=== PATIENT | male | born 1980 | race Caucasian/White ===

== ENCOUNTER → 2016-07-19 | Outpatient (CLI) | payer SELFPAY ==
[2016-07-19 15:06] LABS: PLATELET MORPHOLOGY COMMENT NORMAL MORPHOLOGY (NORM)
[2016-07-19 15:07] LABS: BAND NEUTROPHILS % 1 % (0-10); BASOPHILS % (MANUAL) 0 % (0-1); EOSINOPHILS % (MANUAL) 0 % (0-8); MONOCYTES % (MANUAL) 8 % (0-12)
[2016-07-19 15:08] LABS: LYMPHOCYTES % (MANUAL) 21 % (10-50); NEUTROPHILS % (MANUAL) 70 % (50-80)
== END ==
LOC: LAB 13:47
PROVIDERS: ATTEND Psychiatry & Neurology Psychiatry
DX: F31.13 Bipolar disorder, current episode manic without psychotic features, severe (principal)
CPT/HCPCS: 85007

== ENCOUNTER → 2016-08-16 | Outpatient (CLI) | payer SELFPAY ==
[2016-08-16 14:52] LABS: BAND NEUTROPHILS % 0.2 % (0-10); BASOPHILS % (MANUAL) 0 % (0-1); EOSINOPHILS % (MANUAL) 0 % (0-8); LYMPHOCYTES % (MANUAL) 18.6 % (10-50); MONOCYTES % (MANUAL) 5.9 % (0-12); NEUTROPHILS % (MANUAL) 75.3 % (50-80); PLATELET MORPHOLOGY COMMENT NORMAL MORPHOLOGY (NORM)
== END ==
LOC: LAB 14:20
PROVIDERS: ATTEND Psychiatry & Neurology Psychiatry
DX: F31.13 Bipolar disorder, current episode manic without psychotic features, severe (principal)
CPT/HCPCS: 85007

== ENCOUNTER → 2016-09-13 | Outpatient (CLI) | payer SELFPAY ==
[2016-09-13 14:58] LABS: BAND NEUTROPHILS % 27.5 % (0-10); BASOPHILS % (MANUAL) 0.2 % (0-1); EOSINOPHILS % (MANUAL) 0 % (0-8); LYMPHOCYTES % (MANUAL) 8.1 % (10-50); MONOCYTES % (MANUAL) 0 % (0-12); NEUTROPHILS % (MANUAL) 64.2 % (50-80); PLATELET MORPHOLOGY COMMENT NORMAL MORPHOLOGY (NORM)
== END ==
LOC: LAB 14:17
PROVIDERS: ATTEND Psychiatry & Neurology Psychiatry
DX: F31.13 Bipolar disorder, current episode manic without psychotic features, severe (principal)
CPT/HCPCS: 85007

== ENCOUNTER → 2016-10-12 | Outpatient (CLI) | payer SELFPAY ==
[2016-10-12 14:26] LABS: BAND NEUTROPHILS % 0.2 % (0-10); BASOPHILS % (MANUAL) 0 % (0-1); EOSINOPHILS % (MANUAL) 0 % (0-8); LYMPHOCYTES % (MANUAL) 28.5 % (10-50); MONOCYTES % (MANUAL) 9.6 % (0-12); NEUTROPHILS % (MANUAL) 61.7 % (50-80); PLATELET MORPHOLOGY COMMENT NORMAL MORPHOLOGY (NORM); RBC MORPHOLOGY COMMENT NORMAL MORPHOLOGY (NORM); WBC MORPHOLOGY COMMENT NORMAL MORPHOLOGY (NORM)
== END ==
LOC: LAB 13:55
PROVIDERS: ATTEND Psychiatry & Neurology Psychiatry
DX: F31.13 Bipolar disorder, current episode manic without psychotic features, severe (principal)
CPT/HCPCS: 85007

== ENCOUNTER → 2016-11-11 | Outpatient (CLI) | payer SELFPAY ==
[2016-11-11 15:57] LABS: BAND NEUTROPHILS % 0 % (0-10); BASOPHILS % (MANUAL) 0 % (0-1); EOSINOPHILS % (MANUAL) 0 % (0-8); LYMPHOCYTES % (MANUAL) 31.3 % (10-50); MONOCYTES % (MANUAL) 8.6 % (0-12); NEUTROPHILS % (MANUAL) 60.1 % (50-80); PLATELET MORPHOLOGY COMMENT NORMAL MORPHOLOGY (NORM); RBC MORPHOLOGY COMMENT NORMAL MORPHOLOGY (NORM); WBC MORPHOLOGY COMMENT NORMAL MORPHOLOGY (NORM)
== END ==
LOC: LAB 15:31
PROVIDERS: ATTEND Psychiatry & Neurology Psychiatry
DX: F31.13 Bipolar disorder, current episode manic without psychotic features, severe (principal)
CPT/HCPCS: 85007

== ENCOUNTER → 2016-12-11 | Outpatient (CLI) | payer SELFPAY ==
[2016-12-11 14:43] LABS: NEUTROPHILS % (MANUAL) 64.5 % (50-80)
[2016-12-11 14:44] LABS: BAND NEUTROPHILS % 0 % (0-10); BASOPHILS % (MANUAL) 0 % (0-1); EOSINOPHILS % (MANUAL) 0 % (0-8); LYMPHOCYTES % (MANUAL) 26.4 % (10-50); METAMYELOCYTES % 0 %; MONOCYTES % (MANUAL) 8.9 % (0-12); MYELOCYTES % 0 %; PLATELET MORPHOLOGY COMMENT NORMAL MORPHOLOGY (NORM); PROMYELOCYTES % 0 %; RBC MORPHOLOGY COMMENT NORMAL MORPHOLOGY (NORM); WBC MORPHOLOGY COMMENT NORMAL MORPHOLOGY (NORM)
== END ==
LOC: LAB 13:39
PROVIDERS: ATTEND Psychiatry & Neurology Psychiatry
DX: F31.13 Bipolar disorder, current episode manic without psychotic features, severe (principal)
CPT/HCPCS: 85007

== ENCOUNTER → 2017-01-10 | Outpatient (CLI) | payer SELFPAY ==
[2017-01-10 14:18] LABS: BAND NEUTROPHILS % 34.6 % (0-10); BASOPHILS % (MANUAL) 0.2 % (0-1); EOSINOPHILS % (MANUAL) 0.2 % (0-8); LYMPHOCYTES % (MANUAL) 10.7 % (10-50); MONOCYTES % (MANUAL) 0 % (0-12); NEUTROPHILS % (MANUAL) 54.3 % (50-80); PLATELET MORPHOLOGY COMMENT NORMAL MORPHOLOGY (NORM); RBC MORPHOLOGY COMMENT NORMAL MORPHOLOGY (NORM); WBC MORPHOLOGY COMMENT NORMAL MORPHOLOGY (NORM)
== END ==
LOC: LAB 13:52
PROVIDERS: ATTEND Psychiatry & Neurology Psychiatry
DX: F31.13 Bipolar disorder, current episode manic without psychotic features, severe (principal)
CPT/HCPCS: 85007

== ENCOUNTER → 2017-02-09 | Outpatient (CLI) | payer SELFPAY ==
[2017-02-09 15:18] LABS: BAND NEUTROPHILS % 0 % (0-10); LYMPHOCYTES % (MANUAL) 29.3 % (10-50); MONOCYTES % (MANUAL) 8.5 % (0-12); NEUTROPHILS % (MANUAL) 62.3 % (50-80)
[2017-02-09 15:19] LABS: BASOPHILS % (MANUAL) 0 % (0-1); EOSINOPHILS % (MANUAL) 0 % (0-8); METAMYELOCYTES % 0 %; MYELOCYTES % 0 %; PLATELET MORPHOLOGY COMMENT NORMAL MORPHOLOGY (NORM); PROMYELOCYTES % 0 %; RBC MORPHOLOGY COMMENT NORMAL MORPHOLOGY (NORM); WBC MORPHOLOGY COMMENT NORMAL MORPHOLOGY (NORM)
== END ==
LOC: LAB 14:37
PROVIDERS: ATTEND Psychiatry & Neurology Psychiatry
DX: F31.13 Bipolar disorder, current episode manic without psychotic features, severe (principal)
CPT/HCPCS: 85007